=== PATIENT | female | born 1990 | race Caucasian/White ===

== ENCOUNTER 2017-08-09 13:23 | Emergency (ER) | payer SELFPAY ==
[2017-08-09 13:51] VITALS: TEMP 97.6
[2017-08-09] MEDS ORDERED: ALBUTEROL/IPRATROPIUM 1 VIAL SOL INH PRN (14:19)
[2017-08-09] MEDS ORDERED: ALBUTEROL/IPRATROPIUM 1 VIAL SOL ONE (14:21)
[2017-08-09 14:44] LABS: BASOPHILS % (AUTO) 1 % (0-3); EOSINOPHILS % (AUTO) 1 % (0-9); HEMATOCRIT 41 % (35-47); MEAN CORPUSCULAR HGB CONC 34.6 gm/dl (32.0-36.0); MEAN CORPUSCULAR VOLUME 86 fL (81-99); NEUTROPHILS % (AUTO) 65.9 % (37-80)
[2017-08-09 15:02] LABS: ALBUMIN 3.7 gm/dl (3.4-5.0); CALCIUM 8.4 mg/dl (8.5-10.1); POTASSIUM 4.4 mMol/L (3.5-5.1); THYROID STIMULATING HORMONE 0.189 uIU/ml (0.358-3.740)
[2017-08-09 15:21] LABS: APPEARANCE,URINE Slightly Cloudy; BILIRUBIN,URINE NEGATIVE (NEGATIVE); COLOR,URINE Yellow; GLUCOSE, URINE (UA) TRACE (NEGATIVE); KETONES,URINE NEGATIVE (NEGATIVE); LEUKOCYTE ESTERASE ,URINE 1+ (NEGATIVE); NITRATE,URINE NEGATIVE (NEGATIVE); OCCULT BLOOD,URINE NEGATIVE (NEG-TRACE); UROBILINOGEN,URINE 0.2 (0.2-1.0 EU)
[2017-08-09 15:37] VITALS: RESP 18
[2017-08-09 15:52] LABS: RBC,URINE 0-1 (0-3AV/HPF)
[2017-08-09 18:15] VITALS: BP 155/84; PULSE 91; O2SAT 98
== END 2017-08-09 16:10 | disposition home or self-care (01) | DRG 690 ==
LOC: ED 13:23
DX: N30.00 Acute cystitis without hematuria (principal); L50.9 Urticaria, unspecified; R53.83 Other fatigue; R94.6 Abnormal results of thyroid function studies
CPT/HCPCS: 36415; 80053; 81001; 84443; 84703; 85025; 87088; 99283; 99284; A9270-GY

== ENCOUNTER 2018-08-13 15:22 | Inpatient (IN) | payer OTHER ==
[2018-08-13] MEDS ORDERED: SODIUM CHLORIDE 0.9% FLUSH 10 ML SOL IV PRN (15:28)
[2018-08-13] MEDS ORDERED: METHYLERGONOVINE MALEATE 0.2 MG/ML SOL IM PRN (15:28)
[2018-08-13] MEDS ORDERED: MEPIVACAINE HCL 1% MPF 30 ML/VIAL SOL INFIL PRN (15:28)
[2018-08-13] MEDS ORDERED: LACTATED RINGERS 1,000 ML IV PRN (15:28)
[2018-08-13] MEDS ORDERED: CARBOPROST 250 MCG/ML SOL IM PRN (15:28)
[2018-08-13] MEDS ORDERED: FENTANYL 100MCG/2ML SOL IV PRN (15:28)
[2018-08-13] MEDS ORDERED: OXYTOCIN 10000 MU/ML SOL IM PRN (15:28)
[2018-08-13] MEDS ORDERED: AMPICILLIN 1 GM PDS 2 GM in SODIUM CHLORIDE 0.9% 100 ML 100 ML IV SCH (16:15)
[2018-08-13 16:25] LABS: AMPHETAMINES NEGATIVE (NEGATIVE); BARBITUATES NEGATIVE (NEGATIVE); BENZODIAZEPINES NEGATIVE (NEGATIVE); CANNABINOL(THC) NEGATIVE (NEGATIVE); COCAINE(COC) NEGATIVE (NEGATIVE); METHADONE NEGATIVE (NEGATIVE); METHAMPHETAMINES NEGATIVE (NEGATIVE); OPIATES(OPI) NEGATIVE (NEGATIVE); OXYCODONE(OXY) NEGATIVE (NEGATIVE); PROPOXYPHENE(PPX) NEGATIVE (NEGATIVE); TRICYCLIC ANTIDEPRESSANTS NEGATIVE (NEGATIVE)
[2018-08-13] MEDS: SODIUM CHLORIDE 0.9% FLUSH 10 ML SOL IV SCH (16:28)
[2018-08-13] MEDS ORDERED: AMPICILLIN 1 GM PDS ONE ×2 (16:30→20:13)
[2018-08-13] MEDS: AMPICILLIN 1 GM PDS 1 GM in SODIUM CHLORIDE 0.9% 100 ML 100 ML IV SCH (20:15)
[2018-08-13] MEDS: LACTATED RINGERS 1,000 ML IV SCH (21:15)
[2018-08-13] MEDS ORDERED: DIPHENHYDRAMINE 50 MG/ML SOL IV PRN (21:32)
[2018-08-13] MEDS ORDERED: NALBUPHINE HCL 20 MG/ML SOL IV PRN (21:32)
[2018-08-13] MEDS ORDERED: NALOXONE HYDROCHLORIDE 0.4 MG/ML SOL IV PRN (21:32)
[2018-08-13] MEDS ORDERED: EPHEDRINE SULFATE 50 MG/ML SOL IV PRN (21:32)
[2018-08-13 21:35] LABS: HEMATOCRIT 36 % (35-47); HEMOGLOBIN 11.6 gm/dl (12.0-15.5); MEAN CORPUSCULAR HEMOGLOBIN 28.5 pg (27.0-32.0); MEAN CORPUSCULAR HGB CONC 32.4 gm/dl (32.0-36.0); MEAN CORPUSCULAR VOLUME 88 fL (81-99); NEUTROPHILS % (AUTO) 66.8 % (37-80)
[2018-08-13] MEDS ORDERED: FENTANYL 250 MCG/ 5ML SOL ONE (21:35)
[2018-08-13 21:36] LABS: BASOPHILS % (AUTO) 1 % (0-3); EOSINOPHILS % (AUTO) 1 % (0-9); MONOCYTES % (AUTO) 9.5 % (0-12)
[2018-08-13] MEDS ORDERED: LIDOCAINE HCL 2% MPF 10 ML SOL ONE (21:36)
[2018-08-13] MEDS ORDERED: ROPIVACAINE HYDROCHLORIDE 5 MG/ML SOL ONE (21:36)
[2018-08-13] MEDS ORDERED: METHYLERGONOVINE MALEATE 0.2 MG TAB PO PRN (23:24)
[2018-08-13] MEDS ORDERED: FLEET ENEMA PR PRN (23:24)
[2018-08-13] MEDS ORDERED: WITCH HAZEL 1 EA PAD TOP PRN (23:24)
[2018-08-13] MEDS ORDERED: BISACODYL 10 MG SUP PR PRN (23:24)
[2018-08-13] MEDS ORDERED: TEMAZEPAM 15MG 15 MG CAP PO PRN (23:24)
[2018-08-13] MEDS ORDERED: BENZOCAINE/MENTHOL 1 SPR TOP PRN (23:24)
[2018-08-14] MEDS: AMPICILLIN 1 GM PDS 1 GM in SODIUM CHLORIDE 0.9% 100 ML 100 ML IV SCH (01:13)
[2018-08-14] MEDS: LACTATED RINGERS 1,000 ML IV SCH ×3 (01:14→07:42)
[2018-08-14] MEDS: SODIUM CHLORIDE 0.9% FLUSH 10 ML SOL IV SCH (07:42)
[2018-08-14] MEDS: IBUPROFEN 600 MG TAB PO PRN ×2 (07:42→14:42)
[2018-08-14] MEDS: APAP/HYDROCODONE 1 EACH TABLET PO PRN ×4 (07:57→21:34)
[2018-08-14] MEDS ORDERED: TEMAZEPAM 15MG 15 MG CAP PO PRN (09:31)
[2018-08-14] MEDS: DOCUSATE SODIUM 100 MG SGL PO SCH ×2 (09:35→21:34)
[2018-08-14] MEDS ORDERED: TEMAZEPAM 15MG 15 MG CAP ONE (22:16)
[2018-08-15] MEDS: APAP/HYDROCODONE 1 EACH TABLET PO PRN (03:02)
[2018-08-15] MEDS: IBUPROFEN 600 MG TAB PO PRN ×3 (06:48→19:41)
[2018-08-15] MEDS: SODIUM CHLORIDE 0.9% FLUSH 10 ML SOL IV SCH (07:18)
[2018-08-15] MEDS ORDERED: MULTIVITAMIN2 1 EA TAB PO SCH (09:00)
[2018-08-15] MEDS ORDERED: FOLIC ACID 1 MG TAB PO SCH (09:00)
[2018-08-15] MEDS: DOCUSATE SODIUM 100 MG SGL PO SCH ×2 (09:24→21:02)
[2018-08-15 13:47] VITALS: RESP 16; O2SAT 98
[2018-08-15 21:26] VITALS: BP 123/78; PULSE 88; TEMP 97.9
== END 2018-08-15 23:14 | disposition home or self-care (01) | DRG 807 ==
LOC: OB 15:22 → OBSVTOIN 15:22 → INTOOBSV 22:47 → OBSVTOIN 22:47 → UNDODISIN 08-15 23:14
PROVIDERS: ADMIT Family Medicine; ATTEND Family Medicine
PROC: 3E04329 Introduction of Other Anti-infective into Central Vein, Percutaneous Approach (ICD-10-PCS; principal; 2018-08-13)
PROC: 10E0XZZ Delivery of Products of Conception, External Approach (ICD-10-PCS; 2018-08-13)
PROC: 10907ZC Drainage of Amniotic Fluid, Therapeutic from Products of Conception, Via Natural or Artificial Opening (ICD-10-PCS; 2018-08-13)
PROC: 6A550ZT Pheresis of Cord Blood Stem Cells, Single (ICD-10-PCS; 2018-08-13)
DX: O80 Encounter for full-term uncomplicated delivery (principal); Z37.0 Single live birth; O99.824 Streptococcus B carrier state complicating childbirth; Z3A.40 40 weeks gestation of pregnancy
CPT/HCPCS: 36415; 59025; 80305; 85018; 85025; 99070; J0290; J0670; J2590; J2795; J3010; A9270-GY